=== PATIENT | female | born 1950 | race Caucasian/White ===

== ENCOUNTER 2018-09-15 17:39 | Inpatient (IN) | payer OTHER, MEDICARE ==
[~2018-09-15] VITALS: Ht 157.5 cm; Wt 82.4 kg
[2018-09-15 18:38] LABS: BASOPHILS # (AUTO) 0.08 x10^3/uL (0-0.1); BASOPHILS % (AUTO) 1 % (0-1); EOSINOPHILS # (AUTO) 0.24 x10^3/uL (0-0.4); EOSINOPHILS % (AUTO) 3 % (1-7); LYMPHOCYTES # (AUTO) 0.99 x10^3/uL (1-3.4); LYMPHOCYTES % (AUTO) 12 % (22-44); MD NO; MEAN CORPUSCULAR HEMOGLOBIN 33.4 pg (27.0-34.8); MEAN CORPUSCULAR HGB CONC 34.5 g/dL (32.4-35.8); MEAN CORPUSCULAR VOLUME 96.9 fL (80-100); MEAN PLATELET VOLUME 7.6 fL (7.4-10.4); MONOCYTES # (AUTO) 0.63 x10^3/uL (0.2-0.8); MONOCYTES % (AUTO) 7 % (2-9); NEUTROPHILS # (AUTO) 6.58 x10^3/uL (1.8-6.8); NEUTROPHILS % (AUTO) 77 % (42-75); PLATELET COUNT 300 x10^3/uL (130-400); RED BLOOD COUNT 4.29 x10^6/uL (3.82-5.3); RED CELL DISTRIBUTION WIDTH 14.1 % (9.6-15.2)
[2018-09-15 18:40] LABS: ALBUMIN 3.4 g/dL (3.4-5.0); ANION GAP 9 mmol/L (5-15); CALCIUM 9.9 mg/dL (8.5-10.1); CHLORIDE 108 mmol/L (98-107)
[2018-09-15 18:44] LABS: ALANINE AMINOTRANSFERASE 33 U/L (12-78); ALKALINE PHOSPHATASE 105 U/L (45-117); BILIRUBIN,TOTAL 0.4 mg/dL (0.2-1.0); CREATININE 6.54 mg/dL (0.55-1.02); TOTAL PROTEIN 7.8 g/dL (6.4-8.2)
[2018-09-15] MEDS ORDERED: CLOP75TA52 PO (20:15)
[2018-09-15] MEDS ORDERED: AMLO10TA8 PO (20:15)
[2018-09-15] MEDS ORDERED: GLYB5TAB3 PO (20:15)
[2018-09-15] MEDS ORDERED: EZET10TA18 PO (20:15)
[2018-09-15] MEDS ORDERED: ROSU40TA PO (20:15)
[2018-09-15] MEDS ORDERED: OLME1TAB84 PO (20:15)
[2018-09-15] MEDS ORDERED: SITA50TA PO (20:15)
[2018-09-15] MEDS ORDERED: ALLO100T30 PO (20:15)
--- NOTE | 2018-09-15 20:15 | NUR ---
Patient sent in by [employer] for worsening creatinine, patient denies symptoms at this time. Patient is alert and appropriate, does not appear to be in acute distress at this time. at bedside, call grewal within reach.
[2018-09-15 20:42] LABS: MICROSCOPIC INDICATED
[2018-09-15 20:54] LABS: CULTURE INDICATED? NO
--- NOTE | 2018-09-15 21:17 | NUR ---
Dr. Bradshaw at bedside discussing plan of care
--- NOTE | 2018-09-15 21:52 | NUR ---
Report called to FAYE Figueroa
[2018-09-15 22:18] VITALS: BP 143/71
[2018-09-15] MEDS ORDERED: BISACODYL 10 MG SUPP PR PRN (23:30)
[2018-09-15] MEDS ORDERED: ONDANSETRON ODT 4 MG PO PRN (23:30)
[2018-09-15] MEDS ORDERED: POLYETHYLENE GLYCOL 17 GM PACKET PO PRN (23:30)
[2018-09-15] MEDS: ACETAMINOPHEN 325 MG TABLET PO PRN (23:41)
[2018-09-15] MEDS: SODIUM CHLORIDE 0.9% 1,000 ML IV SCH (23:42)
[2018-09-16] MEDS: INSULIN LISPRO 100 UNITS/ML, PEN SQ-INSULIN SCH ×5 (00:05→20:41)
[2018-09-16 00:24] LABS: HEMOGLOBIN A1C 6.5 % (4.2-6.3)
[2018-09-16 01:27] VITALS: BP 143/71
[2018-09-16 03:22] VITALS: BP 131/73
[2018-09-16 03:52] LABS: CREATININE,URINE RANDOM 71.9 mg/dL
[2018-09-16 06:18] LABS: BASOPHILS # (AUTO) 0.09 x10^3/uL (0-0.1); BASOPHILS % (AUTO) 1 % (0-1); EOSINOPHILS # (AUTO) 0.34 x10^3/uL (0-0.4); EOSINOPHILS % (AUTO) 5 % (1-7); LYMPHOCYTES # (AUTO) 1.09 x10^3/uL (1-3.4); LYMPHOCYTES % (AUTO) 15 % (22-44); MD NO; MEAN CORPUSCULAR HEMOGLOBIN 33.1 pg (27.0-34.8); MEAN CORPUSCULAR HGB CONC 34.5 g/dL (32.4-35.8); MEAN CORPUSCULAR VOLUME 96.1 fL (80-100); MEAN PLATELET VOLUME 7.7 fL (7.4-10.4); MONOCYTES # (AUTO) 0.69 x10^3/uL (0.2-0.8); MONOCYTES % (AUTO) 9 % (2-9); NEUTROPHILS # (AUTO) 5.17 x10^3/uL (1.8-6.8); NEUTROPHILS % (AUTO) 70 % (42-75); PLATELET COUNT 266 x10^3/uL (130-400); RED BLOOD COUNT 3.97 x10^6/uL (3.82-5.3); RED CELL DISTRIBUTION WIDTH 13.9 % (9.6-15.2)
[2018-09-16 06:31] LABS: ALBUMIN 2.9 g/dL (3.4-5.0); ANION GAP 9 mmol/L (5-15); CALCIUM 9.1 mg/dL (8.5-10.1); CHLORIDE 111 mmol/L (98-107)
[2018-09-16 06:34] LABS: ALANINE AMINOTRANSFERASE 29 U/L (12-78); ALKALINE PHOSPHATASE 94 U/L (45-117); BILIRUBIN,TOTAL 0.4 mg/dL (0.2-1.0); CREATININE 6.55 mg/dL (0.55-1.02)
[2018-09-16 07:08] VITALS: BP 117/67
[2018-09-16] MEDS: SODIUM CHLORIDE 0.9% 1,000 ML IV SCH ×2 (08:28→16:30)
[2018-09-16] MEDS: EZETIMIBE 10 MG TABLET PO SCH (08:30)
[2018-09-16] MEDS: AMLODIPINE 10 MG TAB PO SCH (08:30)
[2018-09-16] MEDS: ATORVASTATIN 80 MG TABLET PO SCH (08:31)
[2018-09-16] MEDS: SENNA/DOCUSATE TABLET PO SCH (08:31)
[2018-09-16] MEDS: ACETAMINOPHEN 325 MG TABLET PO PRN ×2 (08:33→16:29)
[2018-09-16 12:04] LABS: ALBUMIN 2.8 g/dL (3.4-5.0); BILIRUBIN, DIRECT 0.1 mg/dL (0.1-0.2); BILIRUBIN,INDIRECT 0.2 mg/dL (0.0-2.0); BILIRUBIN,TOTAL 0.3 mg/dL (0.2-1.0); TOTAL PROTEIN 6.7 g/dL (6.4-8.2)
[2018-09-16 12:26] VITALS: BP 113/61
[2018-09-16 19:25] VITALS: BP 128/67
[2018-09-17] MEDS: SODIUM CHLORIDE 0.9% 1,000 ML IV SCH ×2 (01:09→09:00)
[2018-09-17] MEDS: ACETAMINOPHEN 325 MG TABLET PO PRN ×2 (01:11→19:28)
[2018-09-17 01:27] VITALS: BP 146/68
[2018-09-17 06:44] LABS: BASOPHILS # (AUTO) 0.05 x10^3/uL (0-0.1); BASOPHILS % (AUTO) 1 % (0-1); EOSINOPHILS # (AUTO) 0.31 x10^3/uL (0-0.4); EOSINOPHILS % (AUTO) 4 % (1-7); LYMPHOCYTES # (AUTO) 1.39 x10^3/uL (1-3.4); LYMPHOCYTES % (AUTO) 18 % (22-44); MD NO; MEAN CORPUSCULAR HEMOGLOBIN 33.2 pg (27.0-34.8); MEAN CORPUSCULAR HGB CONC 34.2 g/dL (32.4-35.8); MEAN CORPUSCULAR VOLUME 97.2 fL (80-100); MEAN PLATELET VOLUME 7.7 fL (7.4-10.4); MONOCYTES # (AUTO) 0.56 x10^3/uL (0.2-0.8); MONOCYTES % (AUTO) 7 % (2-9); NEUTROPHILS # (AUTO) 5.45 x10^3/uL (1.8-6.8); NEUTROPHILS % (AUTO) 70 % (42-75); PLATELET COUNT 269 x10^3/uL (130-400); RED BLOOD COUNT 3.84 x10^6/uL (3.82-5.3); RED CELL DISTRIBUTION WIDTH 14.2 % (9.6-15.2)
[2018-09-17 06:56] LABS: ALBUMIN 2.9 g/dL (3.4-5.0); CALCIUM 8.4 mg/dL (8.5-10.1)
[2018-09-17 06:58] LABS: CREATININE 5.73 mg/dL (0.55-1.02)
[2018-09-17] MEDS: INSULIN LISPRO 100 UNITS/ML, PEN SQ-INSULIN SCH ×4 (07:00→19:31)
[2018-09-17 07:19] LABS: ANION GAP 10 mmol/L (5-15)
[2018-09-17 07:20] LABS: CHLORIDE 114 mmol/L (98-107)
[2018-09-17 07:30] VITALS: BP 145/71
[2018-09-17] MEDS: SENNA/DOCUSATE TABLET PO SCH (09:00)
[2018-09-17] MEDS: ATORVASTATIN 80 MG TABLET PO SCH (09:03)
[2018-09-17] MEDS: AMLODIPINE 10 MG TAB PO SCH (09:04)
[2018-09-17] MEDS: EZETIMIBE 10 MG TABLET PO SCH (09:04)
[2018-09-17] MEDS: SEVELAMER CARBONATE 800MG TAB PO SCH ×2 (13:11→18:01)
[2018-09-17 13:23] VITALS: BP 156/71
[2018-09-17 14:00] VITALS: BP 162/70
[2018-09-17] MEDS: SODIUM BICARBONATE 650 MG TABLET PO SCH (19:29)
[2018-09-17] MEDS ORDERED: SODIUM BICARBONATE 650 MG TABLET PO SCH (21:00)
[2018-09-17 21:05] VITALS: BP 152/72
[2018-09-18 03:02] VITALS: BP 162/70
[2018-09-18] MEDS: ACETAMINOPHEN 325 MG TABLET PO PRN ×3 (04:59→20:26)
[2018-09-18 05:57] LABS: BASOPHILS # (AUTO) 0.05 x10^3/uL (0-0.1); BASOPHILS % (AUTO) 1 % (0-1); EOSINOPHILS # (AUTO) 0.26 x10^3/uL (0-0.4); EOSINOPHILS % (AUTO) 3 % (1-7); LYMPHOCYTES # (AUTO) 1.13 x10^3/uL (1-3.4); LYMPHOCYTES % (AUTO) 14 % (22-44); MD NO; MEAN CORPUSCULAR HEMOGLOBIN 32.4 pg (27.0-34.8); MEAN CORPUSCULAR HGB CONC 33.9 g/dL (32.4-35.8); MEAN CORPUSCULAR VOLUME 95.6 fL (80-100); MEAN PLATELET VOLUME 7.6 fL (7.4-10.4); MONOCYTES # (AUTO) 0.67 x10^3/uL (0.2-0.8); MONOCYTES % (AUTO) 8 % (2-9); NEUTROPHILS # (AUTO) 6.01 x10^3/uL (1.8-6.8); NEUTROPHILS % (AUTO) 74 % (42-75); PLATELET COUNT 283 x10^3/uL (130-400); RED BLOOD COUNT 3.92 x10^6/uL (3.82-5.3); RED CELL DISTRIBUTION WIDTH 13.7 % (9.6-15.2)
[2018-09-18 06:15] LABS: ALBUMIN 2.9 g/dL (3.4-5.0); ANION GAP 9 mmol/L (5-15); CALCIUM 9.3 mg/dL (8.5-10.1); CHLORIDE 109 mmol/L (98-107); CREATININE 4.68 mg/dL (0.55-1.02)
[2018-09-18] MEDS: INSULIN LISPRO 100 UNITS/ML, PEN SQ-INSULIN SCH ×4 (07:00→20:26)
[2018-09-18 08:37] VITALS: BP 153/68
[2018-09-18] MEDS: AMLODIPINE 10 MG TAB PO SCH (08:42)
[2018-09-18] MEDS: ATORVASTATIN 80 MG TABLET PO SCH (08:43)
[2018-09-18] MEDS: SENNA/DOCUSATE TABLET PO SCH (08:43)
[2018-09-18] MEDS: EZETIMIBE 10 MG TABLET PO SCH (08:43)
[2018-09-18] MEDS: SEVELAMER CARBONATE 800MG TAB PO SCH ×3 (08:43→17:29)
[2018-09-18] MEDS: SODIUM BICARBONATE 650 MG TABLET PO SCH ×2 (08:43→20:26)
[2018-09-18] MEDS ORDERED: ERGOCALCIFEROL 50,000 UNIT CAPSULE PO SCH (10:30)
[2018-09-18 14:00] VITALS: BP 162/70
[2018-09-18 19:48] VITALS: BP 159/60
[2018-09-19 00:40] VITALS: BP 130/64
[2018-09-19] MEDS: ACETAMINOPHEN 325 MG TABLET PO PRN ×2 (05:15→19:43)
[2018-09-19 05:58] LABS: BASOPHILS # (AUTO) 0.09 x10^3/uL (0-0.1); BASOPHILS % (AUTO) 1 % (0-1); EOSINOPHILS # (AUTO) 0.32 x10^3/uL (0-0.4); EOSINOPHILS % (AUTO) 4 % (1-7); LYMPHOCYTES # (AUTO) 1.24 x10^3/uL (1-3.4); LYMPHOCYTES % (AUTO) 16 % (22-44); MD NO; MEAN CORPUSCULAR VOLUME 97.1 fL (80-100); MEAN PLATELET VOLUME 7.4 fL (7.4-10.4); MONOCYTES # (AUTO) 0.68 x10^3/uL (0.2-0.8); MONOCYTES % (AUTO) 9 % (2-9); NEUTROPHILS # (AUTO) 5.45 x10^3/uL (1.8-6.8); NEUTROPHILS % (AUTO) 70 % (42-75); PLATELET COUNT 286 x10^3/uL (130-400); RED BLOOD COUNT 3.82 x10^6/uL (3.82-5.3)
[2018-09-19 06:11] LABS: ALBUMIN 2.9 g/dL (3.4-5.0); ANION GAP 9 mmol/L (5-15); CALCIUM 9.2 mg/dL (8.5-10.1); CHLORIDE 108 mmol/L (98-107)
[2018-09-19 06:15] LABS: ALANINE AMINOTRANSFERASE 21 U/L (12-78); ALKALINE PHOSPHATASE 80 U/L (45-117); BILIRUBIN,TOTAL 0.5 mg/dL (0.2-1.0); CREATININE 3.88 mg/dL (0.55-1.02)
[2018-09-19] MEDS: EZETIMIBE 10 MG TABLET PO SCH (08:00)
[2018-09-19] MEDS: INSULIN LISPRO 100 UNITS/ML, PEN SQ-INSULIN SCH ×5 (08:00→21:44)
[2018-09-19] MEDS: SODIUM BICARBONATE 650 MG TABLET PO SCH ×2 (08:00→19:43)
[2018-09-19] MEDS: ATORVASTATIN 80 MG TABLET PO SCH (08:00)
[2018-09-19] MEDS: AMLODIPINE 10 MG TAB PO SCH (08:00)
[2018-09-19] MEDS: SEVELAMER CARBONATE 800MG TAB PO SCH ×3 (08:01→17:54)
[2018-09-19] MEDS: SENNA/DOCUSATE TABLET PO SCH (08:01)
[2018-09-19 08:06] VITALS: BP 153/70
[2018-09-19 12:53] VITALS: BP 134/75
[2018-09-19 19:06] VITALS: BP 153/69
[2018-09-20 00:17] VITALS: BP 133/71
[2018-09-20] MEDS: ACETAMINOPHEN 325 MG TABLET PO PRN (04:07)
[2018-09-20 05:40] LABS: BASOPHILS # (AUTO) 0.07 x10^3/uL (0-0.1); BASOPHILS % (AUTO) 1 % (0-1); EOSINOPHILS # (AUTO) 0.29 x10^3/uL (0-0.4); EOSINOPHILS % (AUTO) 4 % (1-7); LYMPHOCYTES # (AUTO) 1.18 x10^3/uL (1-3.4); LYMPHOCYTES % (AUTO) 17 % (22-44); MD NO; MEAN CORPUSCULAR HEMOGLOBIN 33.5 pg (27.0-34.8); MEAN CORPUSCULAR HGB CONC 34.5 g/dL (32.4-35.8); MEAN CORPUSCULAR VOLUME 97.2 fL (80-100); MEAN PLATELET VOLUME 7.2 fL (7.4-10.4); MONOCYTES # (AUTO) 0.62 x10^3/uL (0.2-0.8); MONOCYTES % (AUTO) 9 % (2-9); NEUTROPHILS # (AUTO) 4.77 x10^3/uL (1.8-6.8); NEUTROPHILS % (AUTO) 69 % (42-75); PLATELET COUNT 304 x10^3/uL (130-400); RED BLOOD COUNT 3.84 x10^6/uL (3.82-5.3); RED CELL DISTRIBUTION WIDTH 13.6 % (9.6-15.2)
[2018-09-20 05:42] LABS: INTERNATIONAL NORMALIZED RATIO 0.98 (0.93-1.1); PROTHROMBIN TIME 10.3 Seconds (9.6-11.5)
[2018-09-20 05:51] LABS: CHLORIDE 105 mmol/L (98-107)
[2018-09-20 05:56] LABS: ALBUMIN 3.1 g/dL (3.4-5.0); ANION GAP 8 mmol/L (5-15); CALCIUM 9.2 mg/dL (8.5-10.1); CREATININE 3.43 mg/dL (0.55-1.02)
[2018-09-20] MEDS: INSULIN LISPRO 100 UNITS/ML, PEN SQ-INSULIN SCH (07:00)
[2018-09-20 08:00] VITALS: BP 148/74
[2018-09-20] MEDS: SEVELAMER CARBONATE 800MG TAB PO SCH (08:00)
[2018-09-20] MEDS: SENNA/DOCUSATE TABLET PO SCH (08:51)
[2018-09-20] MEDS: SODIUM BICARBONATE 650 MG TABLET PO SCH (08:52)
[2018-09-20] MEDS: AMLODIPINE 10 MG TAB PO SCH (08:52)
[2018-09-20] MEDS: ATORVASTATIN 80 MG TABLET PO SCH (08:52)
[2018-09-20] MEDS: EZETIMIBE 10 MG TABLET PO SCH (08:52)
[2018-09-20] MEDS ORDERED: SODI650T PO (10:36)
[2018-09-20] MEDS ORDERED: SEVE800T8 PO (10:36)
[2018-09-20] MEDS ORDERED: CLOP75TA52 PO (10:37)
[2018-09-20] MEDS ORDERED: ERGO500017 PO (12:03)
[2018-09-20 12:22] LABS: ANA SCREEN NEGATIVE (Negative)
== END 2018-09-20 12:40 | disposition home or self-care (01) | DRG 683 ==
LOC: ED 21:18 → EDIP 21:23 → 3NE 21:58 → DCLOUNGE 09-20 12:30
PROVIDERS: ADMIT Family Medicine; ATTEND Family Medicine
DX: N17.9 Acute kidney failure, unspecified (principal); E87.2 Acidosis; I12.0 Hypertensive chronic kidney disease with stage 5 chronic kidney disease or end stage renal disease; N18.6 End stage renal disease; E11.22 Type 2 diabetes mellitus with diabetic chronic kidney disease; E11.51 Type 2 diabetes mellitus with diabetic peripheral angiopathy without gangrene; E78.5 Hyperlipidemia, unspecified; M10.9 Gout, unspecified; Z79.02 Long term (current) use of antithrombotics/antiplatelets; Z82.49 Family history of ischemic heart disease and other diseases of the circulatory system; Z83.3 Family history of diabetes mellitus; Z86.73 Personal history of transient ischemic attack (TIA), and cerebral infarction without residual deficits; Z87.891 Personal history of nicotine dependence; Z90.710 Acquired absence of both cervix and uterus; Z79.899 Other long term (current) drug therapy
CPT/HCPCS: 36415; 76770; 80053; 80069; 80076; 81001; 82306; 82436; 82570; 82962; 83036; 83520; 83970; 84133; 84155; 84156; 84165; 84300; 84550; 85025; 85610; 86038; 86160; 86162; 86256; 99285; G0378; J1815; J7030